=== PATIENT | female | born 1950 | race Caucasian/White ===

== ENCOUNTER 2016-08-06 22:12 | Emergency (ER) | payer MEDICARE, OTHER ==
--- NOTE | ~2016-08-06 | EKG ---
PATIENT: ALLISON CHAVES UNIT #: [id number] Ventricular Rate: 73 BPM Atrial Rate: 73 BPM P-R Interval: 158 ms QRS Duration: 88 ms Q-T Interval: 424 ms QTC Calculation(Bezet): 467 ms P [place]: 52 degrees Calculated R [place]: 22 degrees Calculated T [place]: 26 degrees Diagnosis Line: Normal sinus rhythm Diagnosis Line: Low voltage QRS Diagnosis Line: Otherwise normal ECG Diagnosis Line: When compared with ECG of 22-JUN-2016 18:33, Diagnosis Line: No significant change was found Diagnosis Line: Confirmed by DONAVAN PENA MD ([id number]) on 08/09/2016 Diagnosis Line: 7:26:08 AM INTERPRETING MD: BECKY BENNETT
--- NOTE | ~2016-08-06 | CR72 ---
[facility] A Service of [facility] RADIOLOGY TEXT RESULTS PATIENT: ALLISON CHAVES LOCATION: [facility] : 50 UNIT #: [id number] AGE: [address]: Teo Elder MD SEX: F ORDER DR: [id number] [address] [address] [id number] MR#: [id number] Acc #: [id number] NAME: ALLISON CHAVES : 1950 SEX: F STUDY DATE/TIME: 08/06/2016 21:36 UNIT: VAUGHN ROOM: STUDY DESCRIPTION: CR Chest Single View Portable Attending Physician: Teo Elder M.D. Ordering Physician: Teo Elder M.D. Primary Care Physician: No Primary Care Physician MEDICAL IMAGING REPORT This report is preliminary unless electronic signature is present EXAM Portable chest. DATE OF EXAM 08/06/2016 INDICATIONS Chest pain today. PROCEDURE Frontal view chest. COMPARISON None. FINDINGS Heart size upper limits of normal. Lungs are clear. No pleural fluid or pneumothorax. IMPRESSION No acute findings. Dictated by... Aiden Danielle M.D. THIS IS AN ELECTRONICALLY VERIFIED REPORT Aiden Danielle M.D. at 08/09/2016 7:23 AM EED/eleazar TD: 08/07/2016 20:34 JOB #: [id number] [facility] A Service of [facility] RADIOLOGY TEXT RESULTS PATIENT: ALLISON CHAVES LOCATION: [facility] : 50 UNIT #: [id number] AGE: [address]: Teo Elder MD SEX: F ORDER DR: MEDICAL IMAGING REPORT COPY
[2016-08-06 22:11] LABS: POC - CKMB <1.0 ng/mL (0.0-7.9); POC - TROPONIN <0.05 ng/mL (<=0.05)
[~2016-08-06 22:12] MED LIST: DILANTIN PO; SYNTHROID0.15 MG PO
[2016-08-06 22:42] LABS: ALBUMIN SERUM 3.8 g/dL (3.5-5.0); ALKALINE PHOSPHATASE 193 U/L (32-92); ALT (SGPT) 121 U/L (10-40); AST (SGOT) 67 U/L (10-42); BILIRUBIN,TOTAL 0.5 mg/dL (0.2-2.0); BLOOD UREA NITROGEN 12 mg/dL (9-23); CALCIUM SERUM 9.1 mg/dL (8.4-10.2); CARBON DIOXIDE 28 mmol/L (22-31); CHLORIDE 98 mmol/L (100-111); CREATININE SERUM 0.5 mg/dL (0.6-1.4); GLOM FILT RATE Estimated ABOVE60 mL/min (>60); GLUCOSE FASTING 121 mg/dL (70-110); LIPASE 23 U/L (22-51); POTASSIUM 3.5 mmol/L (3.5-5.1); PROTEIN TOTAL SERUM 8.2 g/dL (6.0-8.3); SODIUM 135 mmol/L (135-145)
[2016-08-07 00:04] LABS: POC - CKMB <1.0 ng/mL (0.0-7.9); POC - TROPONIN <0.05 ng/mL (<=0.05)
== END 2016-08-07 02:03 | disposition home or self-care (01) ==
LOC: CED 22:12
PROVIDERS: Emergency Medicine
DX: R07.89 Other chest pain (principal); I25.10 Atherosclerotic heart disease of native coronary artery without angina pectoris; Z87.891 Personal history of nicotine dependence; Z79.899 Other long term (current) drug therapy
CPT/HCPCS: 71010; 80053; 82553; 83690; 84484; 93005; 99284

== ENCOUNTER 2016-11-22 13:56 | Observation (INO) | payer MEDICARE, OTHER ==
--- NOTE | ~2016-11-22 | DS ---
Unit #: [id number] #: [id number] Patient: ALLISON CHAVES [id number] [facility]. [place], [place] [address] [id number] I MR#: [id number] NAME: ALLISON CHAVES. ROOM: 579 Age: 66 Sex: F Admission Date: 11/22/2016 : 1950 Discharge Date: 11/23/2016 Attending Physician: Marv Dale M.D. Primary Care Physician: No Primary Care Physician DISCHARGE SUMMARY SHORT STAY SUMMARY REASON FOR ADMISSION Chest pain. HISTORY OF PRESENT ILLNESS The patient is a 66-year-old white female who is known to [facility] from an admission in May of this year. The patient had a cardiac cath in May where she did receive a bare-metal stent to the LAD. 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 The patient apparently presented to the [facility] ED on 11/22/16 at 2 p.m. from the nursing facility that she stays at, [facility], with apparent complaints of chest pain. Upon interview of the patient, she denies ever having any chest pain, denies any shortness of breath, any lightheadedness, any nausea, any sweating, any dizziness or passing out. EKG did show normal sinus rhythm. Troponins were trended which were all negative x3 sets. Cardiac cath, May 2016, showed a normal left MCA, LAD with 90% mid stenosis. A bare-metal stent was placed. Left circumflex, mid was 90%. Distal vessel was small and not suitable for PCI. RCA 40% distally with an EF of 60%. Echo, May 2016, showed grade one diastolic dysfunction, mild to moderate AR, trace TR. Cardiology was admitting to rule out chest pain. PAST MEDICAL HISTORY 1. Coronary artery disease with a bare-metal stent to the LAD, May 2016. 2. Cardiac cath, May 2016, showed normal left MCA, LAD 90%. Bare-metal stent was placed. Left circumflex mid 90%. Distal vessel was small and not suitable for PCI. RCA 40% distally with an EF of 60%. 3. Echo, May 2016, grade one diastolic dysfunction. Mild to moderate AR. Trace TR. 4. Hypothyroidism. Current TSH was 20, noted previously in May to be greater than 100. 5. Ovarian cancer with ANGELI. 6. Brain tumor removed around 2002. 7. History of seizures secondary to brain tumors. 8. Left mastectomy in 2015. Unit #: [id number] #: [id number] Patient: ALLISON CHAVES 9. Anxiety. PAST SURGICAL HISTORY 1. Brain tumor removal in 2002. 2. Total abdominal hysterectomy. 3. Left mastectomy in 2015. ALLERGIES No known allergies. HOME MEDICATIONS 1. Tylenol 325 mg p.o. every four hours as needed for pain. 2. Aspirin 81 mg p.o. daily. 3. Depakote 250 mg p.o. daily. 4. Dilantin 300 mg p.o. daily. 5. Dilantin 30 mg p.o. Tuesday, Tuesday, Tuesday. 6. Klor-Con 10 mEq p.o. daily. 7. Lipitor 80 mg p.o. at bedtime. 8. Zestril 2.5 mg p.o. at bedtime. 9. Metoprolol tartrate 12.5 mg p.o. twice a day. 10. Ascorbic acid one tab p.o. daily. 11. Synthroid 225 mcg p.o. daily. 12. Vitamin B12 1,000 mcg p.o. every other day. REVIEW OF SYSTEMS A 10-point review of systems is negative except for what is listed in HPI. PHYSICAL EXAMINATION GENERAL APPEARANCE: This is a 66-year-old white female who is alert and oriented, in no apparent distress. VITAL SIGNS: Blood pressure 115/53. Temp 98.3. Pulse 68. Respirations 16. HEENT: Pupils are equal, round and reactive. Oral mucosa is moist. NECK: No JVD. No thyromegaly. No lymphadenopathy. No carotid bruits. HEART: S1, S2. No S3, S4. No clicks, rubs or murmurs. ABDOMEN: Soft. Bowel sounds positive. Nontender, nondistended. EXTREMITIES: No swelling. NEUROLOGIC: No deficits noted. RECENT DIAGNOSTIC STUDIES LABORATORY: Troponin less than 0.05, less than 0.05, less than 0.03. TSH 20.14. White count 7.8, hemoglobin 13.6, hematocrit 41.4, platelets 210. Sodium 139, potassium 4.2, chloride 102, CO2 27, glucose 88, BUN 13, creatinine 0.5, AST 23, ALT 24, alkaline phosphatase 93. IMAGING: Chest x-ray showed no acute cardiopulmonary findings. No pleural effusion. No pneumothorax. IMPRESSION 1. Atypical chest pain which the patient now denies. 2. History of coronary disease with a stent in May of this year. PLAN The patient is going to be discharged back to the nursing facility today as she complains of no chest pain, shortness of breath and denied that she felt any prior to admission, has ruled out for acute OK. No further cardiac workup is needed and she had a cardiac cath in May of this year. Unit #: [id number] #: [id number] Patient: ALLISON CHAVES Discharge medications will be the same as admission medications. No changes will be made. Dictated by... Karla King APRN for S. Oswaldo Menendez TD: 11/23/2016 09:53 JOB #: [id number] DISCHARGE SUMMARY Page 1 of 1 X X DISCHARGE SUMMARY
--- NOTE | ~2016-11-22 | CR72 ---
[facility] A Service of [facility] & [facility] RADIOLOGY TEXT RESULTS PATIENT: ALLISON CHAVES LOCATION: [facility] 579-01 : [birth year] UNIT #: [id number] AGE: [address]: Marv Dale MD SEX: F ORDER DR: [id number] [facility] [address] [facility]. [place], [place] [address] [id number] I MR#: [id number] Acc #: [id number] NAME: ALLISON CHAVES : 1950 SEX: F STUDY DATE/TIME: 11/22/2016 14:39 UNIT: [facility] ROOM: [facility] STUDY DESCRIPTION: CR Chest Single View Portable Attending Physician: Marv Dale M.D. Ordering Physician: Girish Adams M.D. Primary Care Physician: Primary Care Physician No MEDICAL IMAGING REPORT This report is preliminary unless electronic signature is present EXAM Portable chest x-ray 11/22/2016 HISTORY Chest pain. Began today. Chest discomfort. Prior history of ovarian cancer and two brain tumors. TECHNIQUE AP radiograph of the chest is presented. COMPARISON 08/06/2016 FINDINGS Lungs are well-inflated. No acute pulmonary disease, pleural effusion or pneumothorax. No suspicious nodule. Cardiomediastinal contours normal. Bony structures unremarkable. Prior cholecystectomy. Dictated by... Jhon Levy M.D. THIS IS AN ELECTRONICALLY VERIFIED REPORT John Levy M.D. at 11/24/2016 11:34 AM JEREMY/fer TD: 11/23/2016 07:23 JOB #: [id number] MEDICAL IMAGING REPORT Page 1 of 1 COPY
--- NOTE | ~2016-11-22 | EKG ---
PATIENT: ALLISON CHAVES UNIT #: [id number] Ventricular Rate: 81 BPM Atrial Rate: 81 BPM P-R Interval: 136 ms QRS Duration: 74 ms Q-T Interval: 414 ms QTC Calculation(Bezet): 480 ms P [place]: 50 degrees Calculated R [place]: -3 degrees Calculated T [place]: 26 degrees Diagnosis Line: Normal sinus rhythm Diagnosis Line: Baseline wander Nonspecific ST abnormality Diagnosis Line: Otherwise normal ECG Diagnosis Line: When compared with ECG of 06-AUG-2016 21:42, Diagnosis Line: No significant change was found Diagnosis Line: Confirmed by DONAVAN PENA MD ([id number]) on 11/23/2016 Diagnosis Line: 3:30:24 PM INTERPRETING MD: BECKY BENNETT
--- NOTE | ~2016-11-22 | EKG ---
PATIENT: ALLISON CHAVES UNIT #: [id number] Ventricular Rate: 64 BPM Atrial Rate: 64 BPM P-R Interval: 176 ms QRS Duration: 84 ms Q-T Interval: 470 ms QTC Calculation(Bezet): 484 ms P [place]: 34 degrees Calculated R [place]: -7 degrees Calculated T [place]: 14 degrees Diagnosis Line: Normal sinus rhythm Diagnosis Line: Minimal voltage criteria for LVH, may be normal Diagnosis Line: variant Diagnosis Line: Inferior infarct (cited on or before 22-NOV-2016) Diagnosis Line: Abnormal ECG Diagnosis Line: When compared with ECG of 22-NOV-2016 14:21, Diagnosis Line: (unconfirmed) Diagnosis Line: Questionable change in initial forces of Inferior Diagnosis Line: leads Diagnosis Line: Confirmed by MAYKEL DELCID MD ([id number]) on Diagnosis Line: 11/24/2016 8:21:15 AM INTERPRETING MD: BHAVIN BENNETT
[2016-11-22] MEDS ORDERED: APAP325 M2 PO (14:35)
[2016-11-22] MEDS ORDERED: ASPIRIN81 M2 PO (14:35)
[2016-11-22] MEDS ORDERED: DEPAKOTE ER250 MG PO (14:35)
[2016-11-22] MEDS ORDERED: DILANTIN PO (14:35)
[2016-11-22] MEDS ORDERED: LIPITOR80 MG PO (14:36)
[2016-11-22] MEDS ORDERED: KCL PO (14:36)
[2016-11-22] MEDS ORDERED: DILANTIN KAPSEA30 MG PO (14:36)
[2016-11-22] MEDS ORDERED: LOPRESSOR PO (14:37)
[2016-11-22] MEDS ORDERED: LISINOPRIL PO (14:37)
[2016-11-22] MEDS ORDERED: SYNTHROID PO (14:40)
[2016-11-22] MEDS ORDERED: B-121000 MC1 PO (14:40)
[2016-11-22] MEDS ORDERED: ASCORBIC ACID250 M1 PO (14:40)
[2016-11-22 14:50] LABS: BASOPHIL% 0.3 % (0-2.5); EOSINOPHIL# 0.3 X10e3 (0-0.7); EOSINOPHIL% 3.8 % (0.0-7.0); HEMATOCRIT 41.5 % (35.0-45.0); HEMOGLOBIN 13.5 gm/dL (12.0-16.0); LYMPHOCYTE# 2.4 X10e3 (1.0-3.5); LYMPHOCYTE% 35.1 % (17.0-45.0); MEAN CELL VOLUME 94.4 FL (83-96); MEAN CORPUSCULAR HEMOGLOBIN 30.7 PG (28-34); MEAN CORPUSCULAR HGB CONC 32.5 g/dL (30-36); MEAN PLATELET VOLUME 8.6 FL (6.5-11.5); MONOCYTE# 0.4 X10e3 (0-1.0); MONOCYTE% 6.4 % (3.0-12.0); NEUTROPHIL# 3.8 X10e3 (1.5-7.1); NEUTROPHIL% 54.4 % (40-75); PLATELET COUNT 213 X10e3 (140-420); RED CELL DISTRIBUTION WIDTH 13.5 % (11.0-15.5); WHITE BLOOD COUNT 6.9 X10e3 (4.0-10.5)
[2016-11-22 14:53] LABS: DIFF IND NO
[2016-11-22 15:16] LABS: ALBUMIN SERUM 3.5 g/dL (3.5-5.0); ALKALINE PHOSPHATASE 97 U/L (32-92); ALT (SGPT) 24 U/L (10-40); AST (SGOT) 21 U/L (10-42); BILIRUBIN, DIRECT <0.1 mg/dL (0.0-0.2); BILIRUBIN,INDIRECT 0.4 mg/dL (0.0-0.9); BILIRUBIN,TOTAL 0.5 mg/dL (0.2-2.0); BLOOD UREA NITROGEN 13 mg/dL (9-23); BUN/CREATININE RATIO 16.25; CALCIUM SERUM 9.1 mg/dL (8.4-10.2); CARBON DIOXIDE 28 mmol/L (22-31); CHLORIDE 101 mmol/L (100-111); CREATININE SERUM 0.8 mg/dL (0.6-1.4); GLOM FILT RATE Estimated 76.9 mL/min (>60); GLUCOSE FASTING 89 mg/dL (70-110); POTASSIUM 3.6 mmol/L (3.5-5.1); PROTEIN TOTAL SERUM 7.5 g/dL (6.0-8.3); SODIUM 135 mmol/L (135-145)
[2016-11-22 16:01] LABS: POC - CKMB <1.0 ng/mL (0.0-7.9); POC - TROPONIN <0.05 ng/mL (<=0.05)
[2016-11-22 18:02] LABS: POC - CKMB <1.0 ng/mL (0.0-7.9); POC - TROPONIN <0.05 ng/mL (<=0.05)
[2016-11-22 22:35] LABS: CK TOTAL 33 IU/L (26-140)
[2016-11-23 05:30] LABS: HEMATOCRIT 41.4 % (35.0-45.0); HEMOGLOBIN 13.6 gm/dL (12.0-16.0); MEAN CELL VOLUME 93.9 FL (83-96); MEAN CORPUSCULAR HEMOGLOBIN 30.7 PG (28-34); MEAN CORPUSCULAR HGB CONC 32.7 g/dL (30-36); MEAN PLATELET VOLUME 8.8 FL (6.5-11.5); RED BLOOD COUNT 4.41 X10e (3.90-5.30); RED CELL DISTRIBUTION WIDTH 13.4 % (11.0-15.5); WHITE BLOOD COUNT 7.8 X10e3 (4.0-10.5)
[2016-11-23 06:48] LABS: ALBUMIN SERUM 3.4 g/dL (3.5-5.0); BILIRUBIN,TOTAL 0.2 mg/dL (0.2-2.0); CALCIUM SERUM 9.4 mg/dL (8.4-10.2); CREATININE SERUM 0.5 mg/dL (0.6-1.4); GLOM FILT RATE Estimated 100.9 mL/min (>60); POTASSIUM 4.2 mmol/L (3.5-5.1); PROTEIN TOTAL SERUM 7.5 g/dL (6.0-8.3)
== END 2016-11-23 13:17 ==
LOC: CED 13:56 → CEDOF 17:17 → C5C 20:58 → CEDOF 20:58 → C5C 21:03 → CEDOF 21:03 → C5C 11-23 13:17
PROVIDERS: Emergency Medicine
DX: R07.89 Other chest pain (principal); I25.10 Atherosclerotic heart disease of native coronary artery without angina pectoris; Z95.5 Presence of coronary angioplasty implant and graft; F41.9 Anxiety disorder, unspecified; I35.1 Nonrheumatic aortic (valve) insufficiency; Z85.3 Personal history of malignant neoplasm of breast; Z85.43 Personal history of malignant neoplasm of ovary; Z85.841 Personal history of malignant neoplasm of brain; Z90.12 Acquired absence of left breast and nipple; Z90.710 Acquired absence of both cervix and uterus
CPT/HCPCS: 36415; 71010; 80048; 80053; 80076; 82550; 82553; 84443; 84484; 85025; 85027; 93005; 99285; G0378